=== PATIENT | female | born 1980 | race Caucasian/White ===

== ENCOUNTER 2021-08-10 23:56 | Emergency (ER) | payer MEDICAID, OTHER, SELFPAY | END 2021-08-11 02:55 | disposition home or self-care (01) | LOC: CSHERS 23:56 | DX: S16.1XXA Strain of muscle, fascia and tendon at neck level, initial encounter (principal); M25.531 Pain in right wrist; M25.511 Pain in right shoulder; F17.210 Nicotine dependence, cigarettes, uncomplicated; W18.30XA Fall on same level, unspecified, initial encounter; Y93.02 Activity, running | CPT/HCPCS: 72040 ==